=== PATIENT | male | born 1960 | race American Indian/Alaskan Native ===

== ENCOUNTER 2017-02-15 19:27 | Emergency (ER) | payer MEDICAID ==
[2017-02-15 21:25] LABS: Basophils % (Auto) 0.6 % (0.0-1.8); Eosinophils % (Auto) 1.6 % (0.0-4.3); Hemoglobin 13.4 gm/dl (11.8-15.2); Mean Corpuscular HGB Conc 34 % (32-34); Mean Corpuscular Hemoglobin 31 pg (28-32); Mean Corpuscular Volume 89 fl (84-94); Platelet Count 179 K/mm3 (140-440); Red Blood Count 4.36 M/mm3 (3.65-5.03); Red Cell Distribution Width 13.8 % (13.2-15.2); White Blood Count 6.9 K/mm3 (4.5-11.0)
[2017-02-15 21:43] LABS: Anion Gap 16 mmol/L; Blood Urea Nitrogen 12 mg/dL (9-20); Calcium 9.7 mg/dL (8.4-10.2); Carbon Dioxide 28 mmol/L (22-30); Chloride 102.5 mmol/L (98-107); Glucose 116 mg/dL (75-100); Potassium 4.4 mmol/L (3.6-5.0); Sodium 142 mmol/L (137-145)
--- NOTE | 2017-02-16 00:59 | Cat Scan Report ---
FINAL REPORT PROCEDURE: CT CERVICAL SPINE WO CON TECHNIQUE: Computerized tomography of the cervical spine was performed from the skull base to T1 without contrast material. HISTORY: fall, pain with movement, c-spine point tenderness COMPARISON: No prior studies are available for comparison. FINDINGS: The alignment of the vertebral segments is normal. The heights of the vertebral bodies and the disc spaces are maintained. There is moderate spur formation off your bodies at the C4 through C7 vertebral levels. There is some anterior osseous bridging at the C4-5, C5-6 and C6-7 levels. There is no evidence of an acute fracture or dislocation of the cervical spine. The spinal canal is adequate at all levels. The visualized portion of the airway appears patent. There appears to be small cysts in both lobes of the thyroid gland.. IMPRESSION: There is no evidence of an acute fracture or dislocation. Moderate arthritis of the cervical spine as discussed. Suspected cystic nodules in both lobes of the thyroid gland, further evaluation with ultrasound may be appropriate..
--- NOTE | 2017-02-16 01:00 | XRay Report ---
FINAL REPORT PROCEDURE: XR KNEE 3V LT TECHNIQUE: LEFT knee radiographs, AP, lateral and oblique views. CPT 86739 HISTORY: fall, pain, send for report COMPARISON: No prior studies are available for comparison. FINDINGS: Fracture (s) and/or Dislocation(s): None . Alignment: Normal . Joint space(s): Mild narrowing of the joint spaces. Moderate spur formation off of the osseous structures. Soft tissues: Normal . Bone mineralization: Normal . Foreign bodies: None . IMPRESSION: There is no evidence of an acute fracture. Moderate arthritis.
--- NOTE | 2017-02-16 01:01 | XRay Report ---
FINAL REPORT PROCEDURE: XR ANKLE 3 RT TECHNIQUE: RIGHT ankle radiographs, AP, lateral, and oblique views. CPT 41734 HISTORY: fall, pain, send for report COMPARISON: No prior studies are available for comparison. FINDINGS: Fracture (s) and/or Dislocation(s): None. Alignment: Normal. Joint space(s): Mild narrowing of the joint spaces. Slight spur formation off the osseous structures.. Soft tissues: Normal. Bone mineralization: Normal. Foreign bodies: None. Calcaneal spurring: Moderate inferior spur. IMPRESSION: There is no evidence of an acute fracture. Mild arthritis..
--- NOTE | 2017-02-16 01:03 | XRay Report ---
FINAL REPORT PROCEDURE: XR SHOULDER 2 LT TECHNIQUE: LEFT shoulder radiographs including AP views in internal and external rotation and abduction. CPT 02046 HISTORY: fall, pain, send for report COMPARISON: No prior studies are available for comparison. FINDINGS: Fracture (s) and/or Dislocation(s): None . Joint space(s): Moderate narrowing of the joint spaces. Moderate spur formation off of the osseous structures.. Soft tissues: Normal . Bone mineralization: Normal . Foreign bodies: None . IMPRESSION: There is no evidence of an acute fracture dislocation. Moderate arthritis.
--- NOTE | 2017-02-16 01:09 | XRay Report ---
FINAL REPORT PROCEDURE: XR SPINE LUMBOSACRAL 2-3V TECHNIQUE: Lumbar spine radiographs, including AP, lateral, and lumbosacral spot views. CPT 14150 HISTORY: fall, pain, send for report COMPARISON: No prior studies are available for comparison. FINDINGS: Alignment: Normal. Vertebral body heights/Disk spaces: There is slight loss of disc space height at the L5-S1 level. Mild spur formation off the osseous structures in the lumbar spine are noted. Slight anterior osseous bridging identified in the lumbar spine.. Fracture(s): None. Facets: Normal. Bone mineralization: Normal. IMPRESSION: No evidence of an acute fracture dislocation. Mild arthritis..
[2017-02-16] MEDS ORDERED: MOTRIN PO ONE (01:10)
--- NOTE | 2017-02-16 01:22 | Emergency Department Report ---
ED Fall HPI - General Chief Complaint: Fall Stated Complaint: FALL/LEFT SIDE/BACK/KNEE PAIN Time Seen by Provider: 02/16/17 00:21 Source: patient Mode of arrival: Ambulatory - History of Present Illness Initial Comments: 56-year-old male past medical history diabetes presents with complaint of neck and right shoulder pain and knee pain status post mechanical fall while exiting the shower at home. Patient states that as he was exiting the shower he tripped and fell backward hitting his neck slightly on the edge of the sink and hit his shoulder primarily on his way down, patient states he stumbled getting back up and hurt his right knee area patient is awake alert and oriented 3 denies sustaining any lacerations, states he feels very sore right shoulder. He shouldn't is visibly rearranging shoulders independently without any assistance. Patient denies any paresthesias in upper or lower extremities. Denies any chest pain shortness of breath no palpitations no abdominal pain pain is primarily in his extremities and right shoulder region also complaining of slight pain behind his neck, able to directly point to the area that is bothering him. She denies any alcohol or drug use is not clinically intoxicated fully lucid and conversant during my exam and following commands without any difficulty. Patient denies any headache dizziness or any presyncopal symptoms states he simply tripped on his way out of bathtub Complaint: fall Onset/Timin -: hour(s) Fall From: standing Fall Witnessed: no Place Fall Occurred: home Loss of Consciousness: none Prolonged Down Time?: no Symptoms Prior to Fall: none Location: neck Location - Extremities: Right: Shoulder Severity: moderate Severity scale (0 -10): 6 Quality: aching Context: tripped/slipped Associated Symptoms: neck pain - Related Data Previous Rx's Medication Instructions Recorded Last Taken Type Ibuprofen [Motrin] 600 mg PO Q8H PRN #20 tablet 02/16/17 Unknown Rx Allergies Allergy/AdvReac Type Severity Reaction Status Date / Time No Known Allergies Allergy Unverified 07/28/13 16:19 ED Review of Systems ROS: Stated complaint: FALL/LEFT SIDE/BACK/KNEE PAIN Other details as noted in HPI Constitutional: denies: chills, fever Eyes: denies: eye pain, eye discharge, vision change ENT: denies: ear pain, throat pain Respiratory: denies: cough, shortness of breath, wheezing Cardiovascular: denies: chest pain, palpitations Endocrine: no symptoms reported Gastrointestinal: denies: abdominal pain, nausea, diarrhea Genitourinary: denies: urgency, dysuria Musculoskeletal: other. denies: back pain, joint swelling, arthralgia Skin: denies: rash, lesions Neurological: denies: headache, weakness, paresthesias Psychiatric: denies: anxiety, depression Hematological/Lymphatic: denies: easy bleeding, easy bruising ED Past Medical Hx - Past Medical History Previous Medical History?: Yes Hx Diabetes: Yes - Surgical History Past Surgical History?: No - Social History Smoking Status: Never Smoker Substance Use Type: None - Medications Home Medications: Home Medications Medication Instructions Recorded Confirmed Last Taken Type Ibuprofen [Motrin] 600 mg PO Q8H PRN #20 tablet 02/16/17 Unknown Rx ED Physical Exam - General Limitations: No Limitations General appearance: alert, in no apparent distress - Head Head exam: Present: atraumatic, normocephalic - Eye Eye exam: Present: normal appearance, PERRL, EOMI - ENT ENT exam: Present: mucous membranes moist - Neck Neck exam: Present: normal inspection, tenderness (patient has mild posterior slightly more towards the right trapezius region on exam and palpation), full ROM - Respiratory Respiratory exam: Present: normal lung sounds bilaterally. Absent: respiratory distress - Cardiovascular Cardiovascular Exam: Present: regular rate, normal rhythm. Absent: systolic murmur, diastolic murmur, rubs, gallop - GI/Abdominal GI/Abdominal exam: Present: soft, normal bowel sounds - Rectal Rectal exam: Present: deferred - Extremities Exam Extremities exam: Present: normal inspection, full ROM, normal capillary refill - Back Exam Back exam: Present: normal inspection - Expanded Back Exam Expanded 1 - Pain on palpation here no ecchymosis no involvement of thoracic spine on the midline - Neurological Exam Neurological exam: Present: alert, oriented X3, CN II-XII intact - Expanded Neurological Exam Expanded Patient oriented to: Present: person, place, time Cerebellar function: Finger to Nose: Normal, Heel to Jorge: Normal, Romberg: Normal Sensory exam: Upper Extremity Light Touch: Normal, Lower Extremity Light Touch: Normal Motor strength exam: RUE: 5, LUE: 5, RLE: 5, LLE: 5 DTR: bicep (R): 3+, bicep (L): 3+, tricep (R): 3+, tricep (L): 3+ Best Eye Response (Ayesha): (4) open spontaneously Best Motor Response (Ayesha): (6) obeys commands Best Verbal Response (Ayesha): (5) oriented Ayesha Total: 15 - Psychiatric Psychiatric exam: Present: normal affect, normal mood - Skin Skin exam: Present: warm, dry, intact, normal color. Absent: rash ED Course Vital Signs 02/15/17 19:40 Temperature 99.5 F Pulse Rate 88 Respiratory 18 Rate Blood Pressure 157/91 [Right] O2 Sat by Pulse 98 Oximetry ED Medical Decision Making - Lab Data Result diagrams: 02/15/17 21:12 02/15/17 21:12 - Medical Decision Making A/P: Mechanical fall, shoulder sprain 1-patient tripped while exiting bathtub and hit his right shoulder and back of neck on edge of a sink and banged his knee on his way down to the ground. Patient states he did not lose consciousness, CT C-spine performed as patient was complaining of posterior neck tenderness. Patient has arthritis but no fractures. X-rays also read as negative by radiologist. Only evidence of arthritis. No acute fractures. Patient is not on any anticoagulants is fully lucid awake alert and oriented 3 does not appear to be in any severe distress. [place] head CT rule negative for necessity to image head/brain. Patient has no neurologic deficits on clinical exam no moreno sign and no raccoon eyes no hemotympanum no signs of skull fracture 2-Motrin when necessary short course of pain 3-follow up with primary doctor and orthopedics if shoulder pain persists 4-patient's range of motion and shoulders fully intact, no signs of neurological deficits on clinical exam, patient is fully ambulatory without assistance 5- patient given postconcussion instructions. I advised him to return to the ED if he feels lethargic and confused excessively drowsy and nauseous or cannot tolerate anything by mouth Critical care attestation.: If time is entered above; I have spent that time in minutes in the direct care of this critically ill patient, excluding procedure time. ED Disposition Clinical Impression: Fall Qualifiers: Encounter type: initial encounter Qualified Code(s): W19.XXXA - Unspecified fall, initial encounter Shoulder sprain Qualifiers: Encounter type: initial encounter Shoulder sprain type: unspecified sprain Laterality: right Qualified Code(s): S43.401A - Unspecified sprain of right shoulder joint, initial encounter Disposition: DISCHARGED TO HOME OR SELFCARE Is pt being admited?: No Does the pt Need Aspirin: No Condition: Stable Instructions: Shoulder Sprain (ED), Musculoskeletal Pain (ED), Post Concussion Syndrome (ED) Prescriptions: Ibuprofen [Motrin] 600 mg PO Q8H PRN #20 tablet PRN Reason: Pain Referrals: PRIMARY CAREMD [Primary Care Provider] - 3-5 Days [facility] [Outside] - 3-5 Days [facility] [Provider Group] - 3-5 Days VIKKI BIRCH MD [Staff Physician] - 3-5 Days Forms: Work/School Release Form(ED) Time of Disposition: 01:51
[2017-02-16 02:15] VITALS: BP 157/95
== END 2017-02-16 02:20 | disposition home or self-care (01) ==
LOC: ED 19:27
DX: S43.401A Unspecified sprain of right shoulder joint, initial encounter (principal); E11.9 Type 2 diabetes mellitus without complications; W01.198A Fall on same level from slipping, tripping and stumbling with subsequent striking against other object, initial encounter; Y93.89 Activity, other specified; Y99.8 Other external cause status; Y92.098 Other place in other non-institutional residence as the place of occurrence of the external cause
CPT/HCPCS: 36415; 72100; 72125; 80048; 85025